=== PATIENT | female | born 1995 | race Caucasian/White ===

== ENCOUNTER 2017-06-29 09:52 | Emergency (ER) | payer SELFPAY ==
[~2017-06-29] VITALS: Ht 157.5 cm; Wt 81.6 kg
--- NOTE | 2017-06-29 09:57 | ER Report ---
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 Patient presents with a five-day history of body aches and shortness of breath with cough. She denies a productive sputum. No blood in her sputum. She denies any chest pain chest pressure sensations of breath no diaphoresis, no nausea vomiting. Patient has not established a PCP since they' ve moved to [place] from [facility]. Her body aches are being rated as a 4 -5 out of 10. She is afebrile today in the emergency department. She states that she was having fever chills earlier over the last 5 days. There is no diarrhea. She did not get her influenza vaccinations. No alleviating factors activity makes it worse. ROS: 12 point review of systems essentially negative other than what's mentioned in history of present illness. NURSES AND OLD MEDICAL RECORDS: Reviewed PMH: Reviewed SURGICAL HX: Reviewed FAMILY HX: Noncontributory SOCIAL HX: She denies smoking alcohol or illicit drugs. She states that she is a virgin and is not sexually active. VITAL SIGNS: Reviewed CONSTITUTIONAL: 22-year-old female in minimal to moderate distress. PHYSICAL EXAM: HEENT: Pupils equal round reactive to light and accommodate, EOMI, tympanic membranes pearly white umbo present with good light reflex. Lips dry mucous membranes moist gums nonbleeding uvula midline and rises equally with phonation, oropharynx noninjected, teeth intact. NECK: Neck supple, thyroid not appreciated, anterior and posterior cervical lymphadenopathy not appreciated. Trachea midline and rises equally with phonation. CARDIAC: S1-S2 regular rate rhythm no murmurs rubs or gallops. I do not hear any murmur and I listened both in the reclining and sitting forward position. LUNGS: Lungs clear bilaterally posteriorly in all wagner. Good air movement. ABDOMEN: Abdomen soft, nondistended, bowel sounds active in all 4 quadrants, no bruits noted, no CVA tenderness. MUSCULOSKELETAL: Strength 5 out of 5 x 4 extremities, no deformities noted. NEUROLOGIC: Patient alert and oriented by 3 Allergies: Coded Allergies: No Known Drug Allergies (Unverified , 06/29/17) Home Meds No Active Prescriptions or Reported Meds Constitutional Vital Sign - Last 24 Hours 06/29/17 06/29/17 06/29/17 06/29/17 09:55 09:57 09:57 10:00 Temp 98.2 Pulse 82 83 Resp 16 B/P (MAP) 114/69 (84) 114/69 115/84 (94) Pulse Ox 95 O2 Delivery Room Air 06/29/17 06/29/17 06/29/17 06/29/17 10:02 10:07 10:12 10:17 Pulse 85 89 76 Pulse Ox 96 98 96 96 06/29/17 06/29/17 06/29/17 06/29/17 10:25 10:27 10:30 10:32 Pulse 91 52 Resp 21 19 B/P (MAP) 130/93 (105) 88/40 (56) Pulse Ox 98 99 06/29/17 06/29/17 06/29/17 06/29/17 10:47 10:52 10:57 11:00 Pulse 67 70 71 Resp 15 9 10 B/P (MAP) 98/68 (78) Pulse Ox 92 95 94 06/29/17 11:02 Pulse 72 Resp 13 Pulse Ox 94 Medical Decision Making Data Points Result Diagram: 06/29/17 1025 06/29/17 1025 Laboratory Hematology Test 06/29/17 10:22 06/29/17 10:25 Urine Color Yellow Urine Clarity Slightly-cloudy Urine pH 5.0 pH (4.8-9.5) Urine Specific [place] 1.015 Urine Protein Negative mg/dL (NEGATIVE) Urine Glucose (UA) Negative mg/dL (NEGATIVE) Urine Ketones Negative mg/dL (NEGATIVE) Urine Blood Large (NEGATIVE) Urine Nitrite Negative (NEGATIVE) Urine Bilirubin Negative (NEGATIVE) Urine Urobilinogen Negative mg/dL (0.2-1.9) Urine Leukocyte Esterase Negative (NEGATIVE) Urine RBC 1 /HPF (0-2/HPF) Urine WBC 2 /HPF (0-5/HPF) Urine Squamous Epithelial Cells Many /LPF (</=FEW) Urine Bacteria Few /HPF (NONE-FEW) Urine Mucus Few /HPF (NONE-FEW) Influenza Type A Antigen Negative (NEGATIVE) Influenza Type B Antigen Positive (NEGATIVE) Group A Streptococcus Screen Negative (NEGATIVE) Red Blood Count 4.95 M/uL (4.17-5.56) Mean Corpuscular Volume 88.5 fL (80.0-96.0) Mean Corpuscular Hemoglobin 30.4 pg (26.0-33.0) Mean Corpuscular Hemoglobin Concent 34.3 g/dL (32.0-36.0) Red Cell Distribution Width 13.1 % (11.5-14.5) Mean Platelet Volume 7.1 fL (7.2-11.1) Neutrophils (%) (Auto) 50.0 % (39.4-72.5) Lymphocytes (%) (Auto) 36.4 % (17.6-49.6) Monocytes (%) (Auto) 12.9 % (4.1-12.4) Eosinophils (%) (Auto) 0.2 % (0.4-6.7) Basophils (%) (Auto) 0.5 % (0.3-1.4) Nucleated RBC Relative Count (auto) 0.0 /100WBC Neutrophils # (Auto) 2.5 K/uL (2.0-7.4) Lymphocytes # (Auto) 1.8 K/uL (1.3-3.6) Monocytes # (Auto) 0.6 K/uL (0.3-1.0) Eosinophils # (Auto) 0.0 K/uL (0.0-0.5) Basophils # (Auto) 0.0 K/uL (0.0-0.1) Nucleated RBC Absolute Count (auto) 0.00 K/uL Sodium Level 141 mmol/L (137-145) Potassium Level 3.6 mmol/L (3.5-5.0) Chloride Level 102 mmol/L (98-107) Carbon Dioxide Level 24 mmol/L (22-31) Blood Urea Nitrogen 9 mg/dl (7-18) Creatinine 0.90 mg/dl (0.52-1.04) Glomerular Filtration Rate Calc > 60.0 Random Glucose 80 mg/dl (75-110) Calcium Level 9.3 mg/dl (8.4-10.2) Total Bilirubin 0.4 mg/dl (0.2-1.3) Aspartate Amino Transf (AST/SGOT) 20 U/L (0-35) Alanine Aminotransferase (ALT/SGPT) 28 U/L (0-56) Alkaline Phosphatase 70 U/L (0-126) Total Protein 8.8 gm/dl (6.3-8.2) Albumin 4.8 g/dl (3.5-5.0) Chemistry Test 06/29/17 10:22 06/29/17 10:25 Urine Color Yellow Urine Clarity Slightly-cloudy Urine pH 5.0 pH (4.8-9.5) Urine Specific [place] 1.015 Urine Protein Negative mg/dL (NEGATIVE) Urine Glucose (UA) Negative mg/dL (NEGATIVE) Urine Ketones Negative mg/dL (NEGATIVE) Urine Blood Large (NEGATIVE) Urine Nitrite Negative (NEGATIVE) Urine Bilirubin Negative (NEGATIVE) Urine Urobilinogen Negative mg/dL (0.2-1.9) Urine Leukocyte Esterase Negative (NEGATIVE) Urine RBC 1 /HPF (0-2/HPF) Urine WBC 2 /HPF (0-5/HPF) Urine Squamous Epithelial Cells Many /LPF (</=FEW) Urine Bacteria Few /HPF (NONE-FEW) Urine Mucus Few /HPF (NONE-FEW) Influenza Type A Antigen Negative (NEGATIVE) Influenza Type B Antigen Positive (NEGATIVE) Group A Streptococcus Screen Negative (NEGATIVE) White Blood Count 5.0 k/uL (4.5-11.0) Red Blood Count 4.95 M/uL (4.17-5.56) Hemoglobin 15.0 g/dL (12.0-16.0) Hematocrit 43.8 % (34.0-47.0) Mean Corpuscular Volume 88.5 fL (80.0-96.0) Mean Corpuscular Hemoglobin 30.4 pg (26.0-33.0) Mean Corpuscular Hemoglobin Concent 34.3 g/dL (32.0-36.0) Red Cell Distribution Width 13.1 % (11.5-14.5) Platelet Count 228 K/uL (150-450) Mean Platelet Volume 7.1 fL (7.2-11.1) Neutrophils (%) (Auto) 50.0 % (39.4-72.5) Lymphocytes (%) (Auto) 36.4 % (17.6-49.6) Monocytes (%) (Auto) 12.9 % (4.1-12.4) Eosinophils (%) (Auto) 0.2 % (0.4-6.7) Basophils (%) (Auto) 0.5 % (0.3-1.4) Nucleated RBC Relative Count (auto) 0.0 /100WBC Neutrophils # (Auto) 2.5 K/uL (2.0-7.4) Lymphocytes # (Auto) 1.8 K/uL (1.3-3.6) Monocytes # (Auto) 0.6 K/uL (0.3-1.0) Eosinophils # (Auto) 0.0 K/uL (0.0-0.5) Basophils # (Auto) 0.0 K/uL (0.0-0.1) Nucleated RBC Absolute Count (auto) 0.00 K/uL Glomerular Filtration Rate Calc > 60.0 Calcium Level 9.3 mg/dl (8.4-10.2) Total Bilirubin 0.4 mg/dl (0.2-1.3) Aspartate Amino Transf (AST/SGOT) 20 U/L (0-35) Alanine Aminotransferase (ALT/SGPT) 28 U/L (0-56) Alkaline Phosphatase 70 U/L (0-126) Total Protein 8.8 gm/dl (6.3-8.2) Albumin 4.8 g/dl (3.5-5.0) Urinalysis Test 06/29/17 10:22 Urine Color Yellow Urine Clarity Slightly-cloudy Urine pH 5.0 pH (4.8-9.5) Urine Specific [place] 1.015 Urine Protein Negative mg/dL (NEGATIVE) Urine Glucose (UA) Negative mg/dL (NEGATIVE) Urine Ketones Negative mg/dL (NEGATIVE) Urine Blood Large (NEGATIVE) Urine Nitrite Negative (NEGATIVE) Urine Bilirubin Negative (NEGATIVE) Urine Urobilinogen Negative mg/dL (0.2-1.9) Urine Leukocyte Esterase Negative (NEGATIVE) Urine RBC 1 /HPF (0-2/HPF) Urine WBC 2 /HPF (0-5/HPF) Urine Squamous Epithelial Cells Many /LPF (</=FEW) Urine Bacteria Few /HPF (NONE-FEW) Urine Mucus Few /HPF (NONE-FEW) EKG/Imaging Imaging Chest x-ray: IMPRESSION: 1. No acute cardiopulmonary process is seen ED Course/Re-evaluation ED Course Patient positive for influenza B. Chest x-ray did not show any infiltrates or consolidations or any other acute findings. Heart within normal limits. Re-evaluation Medical decision making includes not exposed to pneumonia, influenza, Decision to Disposition Date: Jun 29, 2017 Decision to Disposition Time: 11:30 Depart Departure Latest Vital Signs Vital Signs Date Time Temp Pulse Resp B/P (MAP) Pulse Ox O2 Delivery O2 Flow Rate FiO2 06/29/17 11:02 72 13 94 06/29/17 11:00 98/68 (78) 06/29/17 09:57 98.2 Room Air Impression: Primary Impression: Influenza B Condition: Condition Unchanged Disposition: HOME OR SELF-CARE New Scripts No Active Prescriptions or Reported Meds Patient Instructions: H1N1 Influenza (ED) Additional Instructions: Review of influenza B. Stay home for the week and recover. return to emergency department if you have any further concerns. I and the staff wanted to thank you for allowing us to take care of your needs today in the emergency department at [facility]. We have tried to answer all of your questions and concerns. Please feel free to return to the emergency department for any further concerns or unanswered questions. DUSTY KENYON MD Jun 29, 2017 09:57
[2017-06-29 10:45] LABS: PLATELET COUNT, AUTOMATED 228 K/uL (150-450)
--- NOTE | 2017-06-29 11:10 | RADIOLOGY IMAGING REPORT ---
FACILITY: [facility] PATIENT NAME: Earlene Shaw : 1995 MR: [id number] V: [id number] EXAM DATE: ORDERING PHYSICIAN: DUSTY KENYON TECHNOLOGIST: Location: [facility] [place] Patient: Earlene Shaw : 1995 Visit/Account:[id number] Date of Sevice: 06/29/2017 Exam type: CHEST PA AND LAT History: FEVER, cough, shortness of breath x5 days, history of heart surgery Comparison: None. Findings: The lungs are free of acute effusions, infiltrates or edema. There is no evidence of a pneumothorax or pneumomediastinum. The cardiac silhouette is normal in size. Metallic coils project over the AP window. The septal occluder projects over the right heart border IMPRESSION: 1. No acute cardiopulmonary process is seen Report Dictated By: Urvashi Julio MD at 06/29/2017 11:02 AM Report E-Signed By: Urvashi Julio MD at 06/29/2017 11:05 AM WSN:[id number]
[2017-06-29 11:30] VITALS: BP 98/73
== END 2017-06-29 11:40 | disposition home or self-care (01) ==
LOC: ER 09:59
DX: J11.1 Influenza due to unidentified influenza virus with other respiratory manifestations (principal)
CPT/HCPCS: 36415; 71046; 81001; 82040; 82247; 82310; 82374; 82435; 82565; 82947; 84075; 84132; 84155; 84295; 84450; 84460; 84520; 85025; 87040; 87081; 87502; 87880; 99284

== ENCOUNTER → 2017-10-26 | Outpatient (REF) ==
--- NOTE | 2017-10-27 17:51 | RADIOLOGY IMAGING REPORT ---
FACILITY: PATIENT NAME: MARCEL HUTTON : [id number] MR: [id number] V: [id number] EXAM DATE: ORDERING PHYSICIAN: MATT KIRK TECHNOLOGIST: Diamond Anderson EXAMINATION:TWO-DIMENSIONAL ECHOCARDIOGRAPH REASON:HX ASD/VSD 2D Measurements (normal values in centimeters) LV endLV endRV endVent.LV PostAorticLeftPercent DiastolicSystolicDiastolicSeptumWallRootAtriumShortening (3.5-5.7)(0.9-2.6)(0.6-1.1)(0.6-1.1)(2.0-3.7)(1.9-4.0)(25-35%) [id number]% STROKE VOLUME: 54ml ESTIMATED EJECTION FRACTION: 62% PARASTERNAL LONG AXIS: Overall left ventricular systolic function appears to be normal. Right ventricle appears to be border line if not mildly enlarged. The other chamber sizes appear to be normal. Aortic valve and mitral valve both appear to open normally. Color examination of the mitral valve revealed a trace of mitral insufficiency. There is also a trace of tricuspid insufficiency noted. Overall left ventricular systolic function appears to be within normal ranges. PARASTERNAL SHORT AXIS: Overall left ventricular function again appears to be normal. Right ventricle appears to be the upper range of normal in size if not slightly enlarged. Aortic valve appears to be trileaflet in configuration and appears to open normally. Tricuspid valve also appears to open normally. A trace amount of tricuspid insufficiency is noted as well as pulmonic insufficiency. APICAL FOUR AND TWO CHAMBER: Overall left ventricular function appears to be normal. A trace of mitral and tricuspid insufficiency is noted. Small VSD is noted with left to right shunt. Aortic valve area and mitral valve area both measure within normal ranges at 3.4 and 3.8cm2 respectively. Left atrial and right atrial volumes are measured within normal ranges of 12 and 10cc/m2. Tricuspid regurgitation Vmax measures at 2.23m/sec. SUBCOSTAL VIEW: No pericardial effusion was noted. Maybe a very small ventricular septal defect was noted in the primum position. Doppler examination of the mitral valve in diastole revealed a normal pattern. No reversal with Valsalva medial & lateral E prime velocities are measured within normal ranges. OVERALL IMPRESSION: 1. Normal left ventricular ejection fraction and normal diastolic function. The estimated ejection fraction of 62%. 2. Border line right ventricle enlargement with all the other chamber sizes being normal. 3. Trace to mild amount of mitral insufficiency, trace amount of tricuspid insufficiency and trace amount of pulmonic insufficiency with estimated right ventricular systolic pressures within normal ranges at 23mm Hg. 4. Probably a very small ventricular septal defect noted at the base of the interventricular septum. Dictated by: Manda Kirk M.D. on 10/26/2017 at 19:58 Transcribed by: JAXON on 10/27/2017 at 12:48 Approved by: Manda Kirk M.D. on 10/27/2017 at 17:50 [facility]
== END ==
LOC: US 03:32
PROVIDERS: ATTEND Internal Medicine
DX: Q21.0 Ventricular septal defect (principal); Q21.1 Atrial septal defect; I51.7 Cardiomegaly; I34.0 Nonrheumatic mitral (valve) insufficiency; I36.1 Nonrheumatic tricuspid (valve) insufficiency; I37.1 Nonrheumatic pulmonary valve insufficiency
CPT/HCPCS: 93306

== ENCOUNTER 2018-11-21 08:34 | Emergency (ER) | payer OTHER ==
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
[2018-11-21] MEDS ORDERED: ACETAMINOPHEN 500 MG TAB PO ONE (08:50)
[2018-11-21 09:30] VITALS: BP 102/72
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
== END 2018-11-21 10:04 | disposition home or self-care (01) ==
LOC: ER 08:59
DX: S06.0X0A Concussion without loss of consciousness, initial encounter (principal); W17.89XA Other fall from one level to another, initial encounter; Y99.0 Civilian activity done for income or pay
CPT/HCPCS: 70450; 72125; 99283; L0172

== ENCOUNTER 2018-12-18 19:39 | Emergency (ER) | payer SELFPAY ==
--- NOTE | 2018-12-18 19:48 | ER Report ---
History and Physical Time Seen By MD: 19:46 Hx. of Stated Complaint: states her heart is fluttering accompanied by chest pressure and SOB since 1800 HPI/ROS CHIEF COMPLAINT: heart fluttering. HISTORY OF PRESENT ILLNESS: This is a 23 year old female. About 1800 hours had heart fluttering. Comes and goes. Associated with slight chest pressure at times. Having a little shortness of breath too. No symptoms at this time. 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 No problems since. 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 NO cough, fevers or chills, or recent illness. No trouble with bowel or bladder. Had a little nausea tonight. Not much to eat today, but drinking fluids. Had an energy drink tonight. Allergies: Coded Allergies: No Known Drug Allergies (Unverified , 12/18/18) Home Meds Active Scripts Ondansetron 4 Mg Odt (ONDANSETRON 4 MG ODT) 4 Mg Tab.rapdis, 4 MG PO ONCE PRN for NAUSEA/VOMITING, #20 TAB 0 Refills Prov:TRINITY GARCIA MD 12/18/18 Reviewed Nurses Notes: Yes Constitutional Vital Sign - Last 24 Hours 12/18/18 12/18/18 12/18/18 12/18/18 19:42 19:54 20:00 20:09 Temp 98.5 Pulse 90 77 77 Resp 22 16 14 B/P (MAP) 126/62 122/77 (92) Pulse Ox 95 94 92 O2 Delivery Room Air 12/18/18 12/18/18 12/18/18 12/18/18 20:23 20:24 20:24 20:25 Pulse 71 B/P (MAP) 101/66 (78) 104/75 (85) 108/65 (79) Pulse Ox 92 12/18/18 12/18/18 12/18/18 12/18/18 20:30 20:39 20:54 21:00 Pulse 74 75 Resp 7 12 B/P (MAP) 112/73 (86) 103/66 (78) Pulse Ox 93 93 12/18/18 12/18/18 12/18/18 12/18/18 21:09 21:24 21:30 21:35 Pulse 79 74 74 Resp 22 17 13 B/P (MAP) 103/60 (74) Pulse Ox 94 93 93 12/18/18 12/18/18 12/18/18 12/18/18 21:50 22:00 22:09 22:20 Pulse 77 80 Resp 18 12 B/P (MAP) 101/69 (80) 111/72 (85) Pulse Ox 94 95 12/18/18 12/18/18 22:30 22:35 Pulse 73 Resp 14 B/P (MAP) 113/77 (89) Pulse Ox 95 Intake and Output 12/18/18 12/18/18 12/19/18 15:01 23:01 07:01 Intake Total 1000 ml Balance 1000 ml Physical Exam General Appearance: The patient is alert. No acute distress. Eyes: Pupils are equal, round. No pallor, injection or icterus. ENT: Mucous membranes are moist. Normal oral mucosa. Normal posterior oropharynx. Neck: Supple and non tender. Respiratory: Lungs are clear to auscultation. Cardiovascular: Regular rate and rhythm. No murmurs, gallops or rubs. Normal capillary refill. Gastrointestinal: Abdomen is soft and non tender. Nondistended. Normal active bowel sounds. Neurological: Alert and oriented x3. No focal neurologic deficits Skin: Warm and dry. No rashes. DIFFERENTIAL DIAGNOSIS: After history and physical exam, differential diagnosis was considered for feeling of abnormal heart beats, will look for arrhythmias, acute coronary syndromes, pulmonary causes, dehydration, electrolyte abnormalities. Medical Decision Making Data Points Result Diagram: 12/18/18194512/18/181945 Laboratory Hematology Test 12/18/18 19:46 Red Blood Count 4.57 M/uL (4.17-5.56) Mean Corpuscular Volume 88.9 fL (80.0-96.0) Mean Corpuscular Hemoglobin 30.7 pg (26.0-33.0) Mean Corpuscular Hemoglobin Concent 34.6 g/dL (32.0-36.0) Red Cell Distribution Width 12.9 % (11.5-14.5) Mean Platelet Volume 7.1 fL (7.2-11.1) Neutrophils (%) (Auto) 57.3 % (39.4-72.5) Lymphocytes (%) (Auto) 35.0 % (17.6-49.6) Monocytes (%) (Auto) 6.0 % (4.1-12.4) Eosinophils (%) (Auto) 1.5 % (0.4-6.7) Basophils (%) (Auto) 0.2 % (0.3-1.4) Nucleated RBC Relative Count (auto) 0.0 /100WBC Neutrophils # (Auto) 6.5 K/uL (2.0-7.4) Lymphocytes # (Auto) 3.9 K/uL (1.3-3.6) Monocytes # (Auto) 0.7 K/uL (0.3-1.0) Eosinophils # (Auto) 0.2 K/uL (0.0-0.5) Basophils # (Auto) 0.0 K/uL (0.0-0.1) Nucleated RBC Absolute Count (auto) 0.00 K/uL Sodium Level 141 mmol/L (137-145) Potassium Level 3.4 mmol/L (3.5-5.0) Chloride Level 107 mmol/L (98-107) Carbon Dioxide Level 21 mmol/L (22-31) Blood Urea Nitrogen 20 mg/dl (7-18) Creatinine 1.00 mg/dl (0.52-1.04) Glomerular Filtration Rate Calc > 60.0 Random Glucose 95 mg/dl (75-110) Calcium Level 9.3 mg/dl (8.4-10.2) Total Bilirubin 0.4 mg/dl (0.2-1.3) Aspartate Amino Transf (AST/SGOT) 31 U/L (0-35) Alanine Aminotransferase (ALT/SGPT) 23 U/L (0-56) Alkaline Phosphatase 57 U/L (0-126) Troponin I < 0.012 ng/ml B-Type Natriuretic Peptide 7 pg/ml (0-100) Total Protein 7.6 g/dl (6.3-8.2) Albumin 4.5 g/dl (3.5-5.0) Chemistry Test 12/18/18 19:46 White Blood Count 11.3 k/uL (4.5-11.0) Red Blood Count 4.57 M/uL (4.17-5.56) Hemoglobin 14.0 g/dL (12.0-16.0) Hematocrit 40.6 % (34.0-47.0) Mean Corpuscular Volume 88.9 fL (80.0-96.0) Mean Corpuscular Hemoglobin 30.7 pg (26.0-33.0) Mean Corpuscular Hemoglobin Concent 34.6 g/dL (32.0-36.0) Red Cell Distribution Width 12.9 % (11.5-14.5) Platelet Count 292 K/uL (150-450) Mean Platelet Volume 7.1 fL (7.2-11.1) Neutrophils (%) (Auto) 57.3 % (39.4-72.5) Lymphocytes (%) (Auto) 35.0 % (17.6-49.6) Monocytes (%) (Auto) 6.0 % (4.1-12.4) Eosinophils (%) (Auto) 1.5 % (0.4-6.7) Basophils (%) (Auto) 0.2 % (0.3-1.4) Nucleated RBC Relative Count (auto) 0.0 /100WBC Neutrophils # (Auto) 6.5 K/uL (2.0-7.4) Lymphocytes # (Auto) 3.9 K/uL (1.3-3.6) Monocytes # (Auto) 0.7 K/uL (0.3-1.0) Eosinophils # (Auto) 0.2 K/uL (0.0-0.5) Basophils # (Auto) 0.0 K/uL (0.0-0.1) Nucleated RBC Absolute Count (auto) 0.00 K/uL Glomerular Filtration Rate Calc > 60.0 Calcium Level 9.3 mg/dl (8.4-10.2) Total Bilirubin 0.4 mg/dl (0.2-1.3) Aspartate Amino Transf (AST/SGOT) 31 U/L (0-35) Alanine Aminotransferase (ALT/SGPT) 23 U/L (0-56) Alkaline Phosphatase 57 U/L (0-126) Troponin I < 0.012 ng/ml B-Type Natriuretic Peptide 7 pg/ml (0-100) Total Protein 7.6 g/dl (6.3-8.2) Albumin 4.5 g/dl (3.5-5.0) EKG/Imaging EKG Interpretation 12 lead EKG: Rhythm: Normal sinus rhythm, rate 83 [place]: normal QRS: normal ST segments: normal Imaging EXAMINATION: Portable AP Chest HISTORY: Palpitations. COMPARISON: 06/29/2017. FINDINGS: The lungs are clear. No focal consolidation or pleural effusion. No pneumothorax. Stable cardiomediastinal silhouette with normal heart size and pulmonary vascularity. An ASD closure device projects over the right heart. 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 Visualized osseous structures appear intact. IMPRESSION: No evidence of acute cardiopulmonary disease. Report Dictated By: Andrea Rogers MD at 12/18/2018 8:40 PM ED Course/Re-evaluation Clinical Indication for ER IV: Hydration, IV Access ED Course Labs obtained, unremarkable other than very mild elevation of white count 11.3. Potassium slightly low at 3.4. BUN to creatinine ratio of 20/1.00 show she is mildly prerenal or dehydrated. Discussed these results with the patient. EKG negative. Telemetry has shown no ectopy or arrhythmias during her stay. Still symptom free at this time. Chest x-ray shows no pulmonary problems or acute cardiac problems. Troponin is negative. Gave her liter of fluid here in the ER. Recommended continued hydration and follow up with primary care or cardiology. Did discuss doing a Holter monitor however the patient would prefer not to do this at this time as she has had problems having these done in the past because she states that she sweats too much. Decision to Disposition Date: Dec 18, 2018 Decision to Disposition Time: 22:33 Depart Departure Latest Vital Signs Vital Signs Date Time Temp Pulse Resp B/P (MAP) Pulse Ox O2 Delivery O2 Flow Rate FiO2 12/18/18 22:35 73 14 95 12/18/18 22:30 113/77 (89) 12/18/18 19:42 98.5 Room Air Impression: Primary Impression: Palpitations Condition: Improved Disposition: HOME OR SELF-CARE Referrals: DUY VALADEZ (PCP) New Scripts Ondansetron 4 Mg Odt (ONDANSETRON 4 MG ODT) 4 Mg Tab.rapdis 4 MG PO ONCE PRN for NAUSEA/VOMITING, #20 TAB 0 Refills Prov: TRINITY GARCIA MD 12/18/18 Patient Instructions: Palpitations (ED) Additional Instructions: Increase fluid intake over the next few days. Would recommend follow-up with cardiology for further evaluation. You can call the medical office building on Thursday to schedule with one of our visiting wood fence erector. TRINITY GARCIA MD Dec 18, 2018 19:48
[2018-12-18] MEDS ORDERED: NS(*) 0.9% 1000 ML BAG 1,000 ML IV ONE (20:10)
[2018-12-18 20:18] LABS: PLATELET COUNT, AUTOMATED 292 K/uL (150-450)
--- NOTE | 2018-12-18 20:49 | RADIOLOGY IMAGING REPORT ---
[place] [facility] [place] Earlene Shaw : 1995 MR: [id number] V: [id number] EXAM DATE: ORDERING PHYSICIAN: TRINITY GARCIA TECHNOLOGIST: Location: [facility] - [place] Patient: Earlene Shaw : 1995 Visit/Account:[id number] Date of Sevice: 12/18/2018 EXAMINATION: Portable AP Chest HISTORY: Palpitations. COMPARISON: 06/29/2017. FINDINGS: The lungs are clear. No focal consolidation or pleural effusion. No pneumothorax. Stable cardiomediastinal silhouette with normal heart size and pulmonary vascularity. An ASD closure device projects over the right heart. 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 Visualized osseous structures appear intact. IMPRESSION: No evidence of acute cardiopulmonary disease. Report Dictated By: Andrea Rogers MD at 12/18/2018 8:40 PM Report E-Signed By: Andrea Rogers MD at 12/18/2018 8:43 PM WSN:[id number]
[2018-12-18 22:30] VITALS: BP 113/77
[2018-12-18] MEDS ORDERED: ONDANSETRON 4 MG ODT TH SL ONE (22:35)
[2018-12-18] MEDS ORDERED: ONDANSETRON 4 MG/2 ML VIAL IVP ONE (22:35)
[2018-12-18] MEDS ORDERED: ONDA4TAB9 PO (22:36)
--- NOTE | 2018-12-18 23:25 | EKG ---
FACILITY: [facility] PATIENT NAME: MARCEL HUTTON : [id number] MR: [id number] V: [id number] EXAM DATE: ORDERING PHYSICIAN: TRINITY GARCIA TECHNOLOGIST: YUMIKO Test Reason : DYSPNEA CHEST PAIN Blood Pressure : / mmHG Vent. Rate : 083 BPM Atrial Rate : 083 BPM P-R Int : 176 ms QRS Dur : 084 ms QT Int : 378 ms P-R-T Axes : 074 054 041 degrees QTc Int : 444 ms Normal sinus rhythm Normal ECG No previous ECGs available Confirmed by KYRA PATRICIA ([id number]) on 12/19/2018 6:39:33 AM Referred By: Confirmed By:KYRA PATRICIA
== END 2018-12-18 22:51 | disposition home or self-care (01) ==
LOC: ER 20:00
DX: R00.2 Palpitations (principal)
CPT/HCPCS: 71045; 83880; 84484; 85025; 93005; 96361; 96374; 99284; J2405; J7030; S0119; 82040; 82247; 82310; 82374; 82435; 82565; 82947; 84075; 84132; 84155; 84295; 84450; 84460; 84520